=== PATIENT | female | born 1995 | race Caucasian/White ===

== ENCOUNTER 2023-12-31 10:06 | Emergency (ER) | payer OTHER ==
[~2023-12-31] VITALS: Ht 165.1 cm; Wt 117.0 kg
[2023-12-31 10:18] VITALS: BP_SYST 163; PULSE 69; RESP 18; TEMP 98.4; O2SAT 97
[2023-12-31] MEDS ORDERED: AUG875 PO (12:24)
[2023-12-31 12:45] VITALS: BP_SYST 163; PULSE 69; RESP 18; TEMP 98.4; O2SAT 97
== END 2023-12-31 12:42 | disposition home or self-care (01) ==
LOC: SED 10:06
DX: J32.9 Chronic sinusitis, unspecified (principal); H53.8 Other visual disturbances; H43.391 Other vitreous opacities, right eye; Z79.899 Other long term (current) drug therapy
CPT/HCPCS: 70450-TC; 99284